=== PATIENT | male | born 1965 | race Caucasian/White ===

== ENCOUNTER → 2020-03-12 12:43 | Outpatient (CLI) | payer MEDICARE ==
[2020-03-12 19:08] LABS: BASOPHILS 1.1 % (0-2); EOSINOPHILS 3.2 % (0-7); IMMATURE GRANULOCYTES 0.3 % (0-5); LYMPHOCYTES 32.7 % (15-50); MCH 31.5 pg (26.0-34.0); MCHC 32.6 g/dL (31.0-37.0); MCV 96.6 fL (80.0-100.0); MONOCYTES 7.3 % (2-11); NEUTROPHILS 55.4 % (40-80); PLATELET COUNT 600 10x3/uL (130-400); RBC 4.76 10x6/uL (4.20-6.10); RDW 14.4 % (11.5-14.5); WBC 10.3 10x3/uL (4.8-10.8)
[2020-03-14 05:08] LABS: IMMUNOGLOBULIN A 333 mg/dL (90-386); IMMUNOGLOBULIN G 1301 mg/dL (603-1613); IMMUNOGLOBULIN M 81 mg/dL (20-172)
== END | disposition home or self-care (01) ==
LOC: D.LABREF 12:43
PROVIDERS: ATTEND Internal Medicine Pulmonary Disease
DX: R05 Cough (principal)

== ENCOUNTER → 2020-06-18 12:03 | Outpatient (CLI) | payer MEDICARE | END | disposition home or self-care (01) | LOC: D.RAD 12:03 | PROVIDERS: ATTEND Internal Medicine Pulmonary Disease | DX: R05 Cough (principal) ==